=== PATIENT | female | born 1975 | race Caucasian/White ===

== ENCOUNTER 2024-04-27 17:35 | Emergency (ER) | payer MEDICAID ==
[~2024-04-27] VITALS: Ht 157.5 cm; Wt 72.0 kg
[2024-04-27 17:43] VITALS: O2SAT 100
[2024-04-27 18:55] LABS: CLARITY URINE CLEAR (CLEAR); COLOR URINE YELLOW (YELLOW); GLUCOSE URINE NEGATIVE (NEGATIVE); KETONES URINE NEGATIVE (NEGATIVE); LEUKOCYTE ESTERASE URINE NEGATIVE (NEGATIVE); NITRITE URINE NEGATIVE (NEGATIVE); OCCULT BLOOD URINE 1+ (NEGATIVE); PH URINE 5.5 (4.5-8.0); PROTEIN URINE NEGATIVE (NEGATIVE); SPECIFIC GRAVITY URINE 1.024 (1.005-1.030); UROBILINOGEN URINE 0.2 E.U./dL (0.2-1.0)
[2024-04-27 19:34] LABS: BACTERIA URINE 2+; SQUAMOUS EPITHELIAL CELL URINE 1+ /lpf (RARE/1+); WBC URINE 0-2 /hpf (0-2)
[2024-04-27 20:41] LABS: BASOPHILS % 0.5 % (0.0-2.0); HEMATOCRIT. 39.1 % (36.0-48.0); HEMOGLOBIN. 13.4 g/dL (12.0-16.0); LYMPHOCYTES % 30.5 % (20.0-50.0); MEAN CORPUSCULAR HEMOGLOBIN 31.9 pg (28.0-32.0); MEAN CORPUSCULAR HGB CONC 34.3 g/dL (31.0-37.0); MEAN CORPUSCULAR VOLUME 93.1 fL (81.0-99.0); MEAN PLATELET VOLUME 7.5 fl (7.4-10.4); MONOCYTES % 8.1 % (2.0-8.0); NEUTROPHILS % 58.9 % (40.0-76.0); PLATELET 357 x1000/uL (130-400); RED CELL DISTRIBUTION WIDTH 13.9 % (11.6-14.6); WHITE BLOOD COUNT 6.7 x1000/uL (4.5-11.0)
[2024-04-27 20:44] LABS: CHLORIDE 106 mEq/L (98-107); POTASSIUM 3.8 mEq/L (3.5-5.1); SODIUM 138 mEq/L (136-145)
[2024-04-27 20:45] LABS: CARBON DIOXIDE 25 mEq/L (21-32)
[2024-04-27 20:46] LABS: CALCIUM 9.5 mg/dL (8.7-10.4)
[2024-04-27 20:48] LABS: HCG SCREEN NEGATIVE
[2024-04-27 20:50] LABS: CREATININE 0.6 mg/dL (0.6-1.0); GLUCOSE 83 mg/dL (70-105); UREA NITROGEN BLOOD 15 mg/dL (9-23)
[2024-04-27] MEDS ORDERED: IBUP-2028 MT (21:08)
[2024-04-27] MEDS ORDERED: METH-653 MT (21:08)
[2024-04-27] MEDS ORDERED: LIDO700A15 TP (21:08)
[2024-04-27] MEDS ORDERED: CEFP100T8 MT (21:08)
[2024-04-27] MEDS: LIDOCAINE HCL 1% 20ML VIAL INFIL ONE (21:27)
[2024-04-27] MEDS: CEFTRIAXONE SODIUM 1G VIAL IM ONE (21:27)
[2024-04-27 21:34] VITALS: BP 112/55; PULSE 63; RESP 16; TEMP 36.8; O2SAT 100
== END 2024-04-27 21:38 | disposition home or self-care (01) ==
LOC: ER 17:35
DX: R51.9 Headache, unspecified (principal); M54.2 Cervicalgia; Z87.59 Personal history of other complications of pregnancy, childbirth and the puerperium; Z79.899 Other long term (current) drug therapy
CPT/HCPCS: 99285; 70450; 80048; 81003; 81025; 84703; 85025; 36415; 72125; 96372; J0696; J3490